=== PATIENT | female | born 1965 | race Caucasian/White ===

== ENCOUNTER → 2018-12-19 | Emergency (ER) | payer OTHER ==
[~2018-12-19] VITALS: Ht 170.2 cm; Wt 113.4 kg
[~2018-12-19] MED LIST: NEURONTIN300 MG
== END | disposition home or self-care (01) ==
LOC: ER 10:22
DX: S40.011A Contusion of right shoulder, initial encounter (principal); W18.39XA Other fall on same level, initial encounter; Y93.89 Activity, other specified; Y92.488 Other paved roadways as the place of occurrence of the external cause; Y99.8 Other external cause status

== ENCOUNTER 2021-07-26 09:25 | Outpatient (CLI) | payer OTHER | END 2021-07-26 09:36 | disposition home or self-care (01) | LOC: RX STUDY 09:25 | PROVIDERS: ATTEND Internal Medicine Gastroenterology | DX: K29.00 Acute gastritis without bleeding (principal); K56.600 Partial intestinal obstruction, unspecified as to cause ==